=== PATIENT | male | born 1990 | race African-American/Black ===

== ENCOUNTER 2016-11-19 09:31 | Emergency (ER) ==
[2016-11-19] MEDS ORDERED: DECADRON IM ONE (10:16)
[2016-11-19] MEDS ORDERED: AMOXIL PO ONE (10:16)
[2016-11-19] MEDS ORDERED: ZYRTEC PO ONE (10:16)
--- NOTE | 2016-11-19 10:20 | PROVIDER DOCUMENTATION ---
[facility]-PENDING SALE TO [facility] General - General Source: patient - History of Present Illness-PENDING SALE TO [facility] General PENDING SALE TO [facility] Location: reports: throat, facial (sinus pressure) Quality of Pain: reports: aching Severity: reports: mild Onset/Duration: reports: 24 hours ago Timing: reports: still present, intermittent Prearrival Treatment: Initiated no prearrival treatment Associated Symptoms: reports: cough, nasal congestion/drainage, sore throat. denies: drooling, ear drainage, facial pain/swelling, fever, malaise, poor fluid intake, poor solids intake, sinus infection, tooth pain, voice change Locality of Occurance: Home Similar Symptoms Previously?: Yes Recently seen or treated by another doctor?: No - Eyes Eye Problem Symptoms: denies: eye pain - Ears Ear Problem Symptoms: reports: none - Nose Nose Problem Symptoms: other (nasal congestion) - Throat/Dental Throat/Dental Problem Symptoms: reports: sore throat <Ruthann Jung - Last Filed: 11/19/16 10:15> <Hattie Multani - Last Filed: 11/19/16 10:28> - General Chief Complaint: Cold Symptoms Stated Complaint: SORE THROAT Time Seen by Provider: 11/19/16 10:08 Allergies/Adverse Reactions: Patient Allergies Allergy/AdvReac Type Severity Reaction Status Date / Time shrimp Allergy RASH Verified 03/23/16 22:34 Home Medications: Home Medication List Medication Instructions Recorded Confirmed Last Taken Type Amoxicillin 500 mg PO BID #14 tablet 11/19/16 Unknown Rx Cetirizine [Zyrtec] 10 mg PO DAILY #20 tablet 11/19/16 Unknown Rx Methylprednisolone [Medrol Dosepak] 4 mg PO DIRECTED #1 package 11/19/16 Unknown Rx - History of Present Illness-PENDING SALE TO [facility] General Nature of Presenting Problem: Pt is 26 y/o M presents to the ED with sore throat and sinus pressure. Pt states symptoms started yesterday. Pt denies F. Pt states having cough. (Ruthann Jung) Review of Systems - Adult - REVIEW OF SYSTEMS - ADULT Constitutional: denies: chills, fever Eyes: denies: blurred vision, double vision Ears, Nose, Mouth & Throat: reports: sinus problem, throat pain. denies: ear pain, nose pain Cardiovascular: denies: chest pain, heart murmur, irregular heart rate Respiratory: reports: cough. denies: shortness of breath, wheezing Gastrointestinal: denies: abdominal pain, diarrhea, nausea, vomiting Genitourinary: denies: dysuria, hematuria Musculoskeletal: denies: bone pain, joint pain, neck pain Integumentary: denies: hives, itching Neurological: denies: dizziness/vertigo, headache/migraines Psychiatric: reports: no symptoms reported Endocrine: reports: no symptoms reported Hematologic/Lymphatic: reports: no symptoms reported Allergic/Immunologic: reports: no symptoms reported All Other Systems: Reviewed and Negative <Ruthann Jung - Last Filed: 11/19/16 10:15> Past History - Adult - PAST MEDICAL HISTORY-ADULT Review of Records: reports: Nursing Assessment Review, Medications Reviewed, Social history reviewed & non-contributory. Major Childhood Illnesses: reports: denies history Cardiovascular: reports: denies history Respiratory: reports: asthma Gastrointestinal: reports: denies history Obstetrical/Gynecological: reports: denies history Genitourinary: reports: denies history Musculoskeletal: reports: denies history Neurological: reports: denies history Endocrine/Immune: reports: denies history Other Conditions: reports: denies history - PRIOR SURGERIES/PROCEDURES Surgical/Procedure History: reports: none - PRIOR HOSPITALIZATIONS Prior Hospitalizations: reports: none - IMMUNIZATION STATUS Childhood Immunizations: See Nurse Assessment Flu Vaccine: See Nurse Assessment - FAMILY HISTORY Family History: reviewed, not pertinent - SOCIAL HISTORY Smoking: cigarettes, less than 1 pack/day Provider spent 3-5 mins advising pt. on dangers of tobacco.: discussed smoking cessation Substance Use: alcohol Alcohol Use Frequency: occasionally Number of drinks per typical drinking period:: 3-4 drinks Living Situation: family <Ruthann Jung - Last Filed: 11/19/16 10:15> Physical Exam- EENT - Physical Exam EENT Initial Vital Signs Reviewed: Yes General Appearance: appears well, alert, no apparent distress Eye Exam: bilateral eye: normal inspection, PERRL, EOMI Ear Exam: bilateral ear: auricle normal, canal normal, TM normal Nasal Exam: sinus tenderness (maxillary) Throat Exam: other (pharynx redness) Neck: non-tender, full range of motion, supple, normal inspection Respiratory: chest non-tender, lungs clear, normal breath sounds, no pleuratic chest pain, no respiratory distress, no accessory muscle use Cardiovascular: normal peripheral pulses, regular rate, rhythm, no edema, no gallop, no JVD, no murmur Abdominal Exam: normal bowel sounds, non tender, soft, no organomegaly, no pulsatile mass Lymphatic: no adenopathy Back Exam: normal inspection, no CVA tenderness, no vertebral tenderness Extremity: normal range of motion, non-tender, normal gait, normal inspection, no pedal edema, no calf tenderness, normal capillary refill Integumentary: normal color, normal turgor, warm/dry Neurologic: grossly normal Psych/Mental Status: normal mood/affect, oriented x 3 <Ruthann Jung - Last Filed: 11/19/16 10:15> Progress <Ruthann Jung - Last Filed: 11/19/16 10:15> <Hattie Multani - Last Filed: 11/19/16 10:28> - PLAN OF CARE/RESULTS Progress/Plan/Lab Results: Discussed results and plan of care with patient. Patient agrees with plan and verbalizes understanding. Vital Signs Temp Pulse Resp BP Pulse Ox 11/19/16 09:53 98 F 69 18 163/95 98 shrimp Allergy (Verified 03/23/16 22:34) RASH No Home Medications 11/19/16 Orders Category Date Time Status Amoxicillin [Amoxil] Med 11/19/16 10:16 Discontinued 500 mg PO NOW ONE Cetirizine [Zyrtec] Med 11/19/16 10:16 Discontinued 10 mg PO NOW ONE Dexamethasone [Decadron] Med 11/19/16 10:16 Discontinued 10 mg IM NOW ONE (Hattie Multani) Departure <Ruthann Jung - Last Filed: 11/19/16 10:15> - Departure Time of Disposition Order: 10:26 Certified Medical Emergency: Emergent <Hattie Multani - Last Filed: 11/19/16 10:28> - Departure DIAGNOSIS: Cough, Sore throat Sinusitis Qualifiers: Sinusitis location: maxillary Chronicity: acute Recurrence: not specified as recurrent Qualified Code(s): J01.00 - Acute maxillary sinusitis, unspecified Disposition: HOME 01 Condition: Stable Additional Instructions: Follow up with primary care physician Take medications as directed Return to ED for any concerns or worsening of symptoms ED Follow Up Instructions: You have been treated by a care provider in the Emergency Department. These instructions are being provided to you so you can have an understanding of how to care for yourself upon discharge. Upon discharge from the Emergency Department, you are responsible for making arrangements for follow-up care by a physician of your choice. Take all prescribed medications as directed. Return to the Emergency Department immediately for any new or worsening symptoms. You may call the Physician Referral phone number at [phone] to obtain a list of Physicians who are taking new patients. Prescriptions: Amoxicillin 500 mg PO BID #14 tablet Methylprednisolone [Medrol Dosepak] 4 mg PO DIRECTED #1 package Cetirizine [Zyrtec] 10 mg PO DAILY #20 tablet Referrals: None,PCP [Primary Care Provider] - Forms: Return to School/Parent Work Attestation - Scribe Verification/Attestation Scribe:: Ruthann Jung Acting as Scribe for:: Hattie Multani Scribe documention review:: This chart was documented by a scribe and accurately reflects the service the provider performed and the decisions made by the provider. <Ruthann Jung - Last Filed: 11/19/16 10:15> - Physician/ MELI Attestation Patient care was provided by Advanced Practice Provider:: Yes Advanced Practice Provider:: Hattie Multani Advanced Practice Provider documentation review:: The Mid-level provider documentation, treatment plan and medical decision making was reviewed by the physician who agrees with all treatment and medical decision making by the P. <Hattie Multani - Last Filed: 11/19/16 10:28> Physician Attestation
[2016-11-19 11:13] VITALS: BP 156/92
== END 2016-11-19 11:12 | disposition home or self-care (01) ==
LOC: P.ED 09:31
DX: J01.00 Acute maxillary sinusitis, unspecified (principal); J02.9 Acute pharyngitis, unspecified; R05 Cough; J34.89 Other specified disorders of nose and nasal sinuses; R09.81 Nasal congestion; F17.210 Nicotine dependence, cigarettes, uncomplicated; Z71.6 Tobacco abuse counseling
CPT/HCPCS: 96372

== ENCOUNTER 2016-11-25 18:50 | Emergency (ER) ==
[2016-11-25] MEDS ORDERED: PHENERGAN IM ONE (19:30)
[2016-11-25] MEDS ORDERED: BENADRYL IM ONE (19:30)
[2016-11-25] MEDS ORDERED: TORADOL IM ONE (19:30)
[2016-11-25] MEDS ORDERED: XYLOCAINE 1%/EPI 1:100,000 INJ ONE (19:32)
--- NOTE | 2016-11-25 19:37 | PROVIDER DOCUMENTATION ---
HPI-General Adult - General Chief Complaint: Headache Stated Complaint: HEADACHE Time Seen by Provider: 11/25/16 19:02 Source: patient Allergies/Adverse Reactions: Patient Allergies Allergy/AdvReac Type Severity Reaction Status Date / Time shrimp Allergy RASH Verified 11/25/16 18:55 Home Medications: Home Medication List Medication Instructions Recorded Confirmed Last Taken Type Amoxicillin/Pot Clavulanate 875 mg PO Q12HR #14 tablet 11/25/16 Unknown Rx [Augmentin] Fluticasone 50 Mcg Nasal [place] 1 spray KT DAILY #1 bottle 11/25/16 Unknown Rx [Flonase] Oxymetazoline Nasal [place] [Afrin 2 spray KT Q12HR PRN #1 bottle 11/25/16 Unknown Rx Nasal [place]] Sulfamethoxazole/Trimethoprim 1 each PO BID #14 tablet 11/25/16 Unknown Rx [Bactrim Ds Tablet] - History of Present Illness -Gen Adult Nature of Presenting Problems: 26 y/o BM c/o global CARDOZA, abscess x 1 week. Pt states was seen here a week ago, given Abx, sent home. states since then, he has not filled Rx, but noted recurring abscess to gluteal region. Reports no vision changes, N/V, hx of migraines. CARDOZA is posterior in nature. States no other sxs. Review of Systems - Adult - REVIEW OF SYSTEMS - ADULT Constitutional: reports: no symptoms reported. denies: chills, fever Eyes: reports: no symptoms reported. denies: blurred vision, double vision Ears, Nose, Mouth & Throat: reports: no symptoms reported. denies: ear pain, nose pain Cardiovascular: reports: no symptoms reported. denies: chest pain, palpitations Respiratory: reports: no symptoms reported. denies: dyspnea on exertion, shortness of breath Gastrointestinal: reports: no symptoms reported. denies: nausea, vomiting Genitourinary: reports: no symptoms reported. denies: dysuria, frequency Musculoskeletal: reports: no symptoms reported. denies: joint pain, joint swelling Integumentary: reports: see HPI, other. denies: nail changes, rash Neurological: reports: see HPI, headache/migraines. denies: numbness, paresthesia Psychiatric: reports: no symptoms reported Endocrine: reports: no symptoms reported. denies: cold intolerance, heat intolerance Hematologic/Lymphatic: reports: no symptoms reported. denies: easy bruising, prolonged bleeding Allergic/Immunologic: reports: no symptoms reported All Other Systems: Reviewed and Negative Past History - Adult - PAST MEDICAL HISTORY-ADULT Review of Records: reports: Nursing Assessment Review, Medications Reviewed Major Childhood Illnesses: reports: denies history Cardiovascular: reports: denies history Respiratory: reports: asthma Gastrointestinal: reports: denies history Obstetrical/Gynecological: reports: denies history Genitourinary: reports: denies history Musculoskeletal: reports: denies history Neurological: reports: denies history Endocrine/Immune: reports: denies history Other Conditions: reports: denies history - PRIOR SURGERIES/PROCEDURES Surgical/Procedure History: reports: none - PRIOR HOSPITALIZATIONS Prior Hospitalizations: reports: none - IMMUNIZATION STATUS Childhood Immunizations: See Nurse Assessment Flu Vaccine: See Nurse Assessment - FAMILY HISTORY Family History: reviewed, not pertinent - SOCIAL HISTORY Smoking: less than 1 pack/day Provider spent 3-5 mins advising pt. on dangers of tobacco.: Discussed manners to quit use, and f/u contacts for add'l counseling. Physical Exam-General - PHYSICAL EXAM-ADULT Initial Vital Signs Reviewed: Yes - CONSTITUTIONAL General Appearance: alert, mild distress - EYES Eyes: PERRL/EOMI, pink conjunctivae. negative: EOM palsy, meningismus - HEAD, EARS, NOSE, MOUTH & THROAT HENMT: normocephalic/atraumatic, moist mucous membranes. negative: hearing deficit - NECK Neck: full range of motion, supple, normal inspection. negative: Brudzinski's sign - RESPIRATORY Respiratory: lungs clear, normal breath sounds. negative: crackles, rales, rhonchi, stridor, wheezing - CARDIOVASCULAR Cardiovascular: regular rate, rhythm. negative: bradycardia, tachycardia - GENITOURINARY Rectal Exam: other (induration to R superior gluteus near gluteal cleft) - MUSCULOSKELETAL Back Exam: normal inspection Extremity: normal gait - SKIN Integumentary: normal color, normal turgor, warm/dry, other (as noted above) - NEUROLOGIC Neurologic: sharepoint application architect II-XII nml as tested. negative: aphasia - PSYCHIATRIC Psych/Mental Status: normal mood/affect, normal thought content, normal thought process, oriented x 3 Progress - PLAN OF CARE/RESULTS Progress/Plan/Lab Results: Orders Category Date Time Status I&D [I and D Set up] DIRECTED Care 11/25/16 19:32 Active HEAD W/O CONTRAST [CT] Stat Exams 11/25/16 19:30 Completed PARANASAL SINUSES [CT] Stat Exams 11/25/16 19:30 Completed Amoxicillin [Amoxil] Med 11/25/16 20:47 Discontinued 750 mg PO NOW ONE Clindamycin [Cleocin] Med 11/25/16 20:47 Discontinued 300 mg PO NOW ONE Diphenhydramine [Benadryl] Med 11/25/16 19:30 Discontinued 25 mg IM NOW ONE Ketorolac [Toradol] Med 11/25/16 19:30 Discontinued 60 mg IM NOW ONE Lidocaine 1%/Epi 1:100,000 [Xylocaine 1%/Epi 1:100,000] Med 11/25/16 19:32 Discontinued 20 ml INJ NOW ONE Promethazine [Phenergan] Med 11/25/16 19:30 Discontinued 25 mg IM NOW ONE Vital Signs Temp Pulse Resp BP Pulse Ox 11/25/16 21:03 98 F 81 16 144/82 97 11/25/16 18:56 98.6 F 88 18 149/75 100 shrimp Allergy (Verified 11/25/16 18:55) RASH Amoxicillin/Pot Clavulanate [Augmentin] 875 mg PO Q12HR #14 tablet 11/25/16 Fluticasone 50 Mcg Nasal [place] [Flonase] 1 spray KT DAILY #1 bottle 11/25/16 Oxymetazoline Nasal [place] [Afrin Nasal [place]] 2 spray KT Q12HR PRN #1 bottle Sulfamethoxazole/Trimethoprim [Bactrim Ds Tablet] 1 each PO BID #14 tablet 11/25 Discussed results and wound care with pt. - CT/MRI 1 CT Study: Head, Sinuses Impression: See EMR Report (NAP intracranially. Mild bilat. maxillary sinus mucosal thickening. Sinuses clear otherwise. No air-fluid levels or intrasinus /nasal cavity mass. -per Dr. Serna) Procedures - INCISION & DRAINAGE Abscess Type: Carbunkle Anesthetic: 1%, Lidocaine w/ Epinephrine Volume of Anesthetic (ml's): 7 Blade Size: 11 Packing placed?: Yes Sterile Dressing Applied?: Yes Drainage: Small Amount Procedure Comment: Pt tolerated well Departure - Departure Time of Disposition Order: 20:44 DIAGNOSIS: Abscess, Noncompliance with medication regimen Sinusitis Qualifiers: Sinusitis location: maxillary Chronicity: unspecified Qualified Code(s): J32.0 - Chronic maxillary sinusitis Headache Qualifiers: Headache type: unspecified Headache chronicity pattern: unspecified pattern Intractability: not intractable Qualified Code(s): R51 - Headache Disposition: HOME 01 Certified Medical Emergency: Emergent Condition: Stable Additional Instructions: Take medications as directed. Follow up with specialist for further management of abscess and headaches. ED Follow Up Instructions: You have been treated by a care provider in the Emergency Department. These instructions are being provided to you so you can have an understanding of how to care for yourself upon discharge. Upon discharge from the Emergency Department, you are responsible for making arrangements for follow-up care by a physician of your choice. Take all prescribed medications as directed. Return to the Emergency Department immediately for any new or worsening symptoms. You may call the Physician Referral phone number at [phone] to obtain a list of Physicians who are taking new patients. Prescriptions: Oxymetazoline Nasal [place] [Afrin Nasal [place]] 2 spray KT Q12HR PRN #1 bottle PRN Reason: Bleeding Amoxicillin/Pot Clavulanate [Augmentin] 875 mg PO Q12HR #14 tablet Sulfamethoxazole/Trimethoprim [Bactrim Ds Tablet] 1 each PO BID #14 tablet Fluticasone 50 Mcg Nasal [place] [Flonase] 1 spray KT DAILY #1 bottle Referrals: None,PCP [Primary Care Provider] - Robert Sequeira III, MD [STAFF PHYSICIAN] - Carlito Lugo MD [STAFF PHYSICIAN] - Forms: Return to School/Parent Work Instructions: Abscess, Migraine Headache, [id number] Attestation - Physician/ MELI Attestation Patient care was provided by Advanced Practice Provider:: Yes Advanced Practice Provider:: Brittani Riggs Advanced Practice Provider documentation review:: The Mid-level provider documentation, treatment plan and medical decision making was reviewed by the physician who agrees with all treatment and medical decision making by the P.
[2016-11-25] MEDS ORDERED: CLEOCIN PO ONE (20:47)
[2016-11-25] MEDS ORDERED: AMOXIL PO ONE (20:47)
[2016-11-25 21:04] VITALS: BP 144/82
--- NOTE | 2016-11-26 09:24 | Diag Imaging Result Document ---
PROCEDURE NAME: HEAD W/O CONTRAST - 11/25/2016 CT OF THE HEAD WITHOUT CONTRAST: FINDINGS: There is no evidence of intracranial bleed, mass effect, or abnormal extra-axial fluid collection. The paranasal sinuses are clear. IMPRESSION: No evidence of acute disease.
--- NOTE | 2016-11-26 09:25 | Diag Imaging Result Document ---
PROCEDURE NAME: PARANASAL SINUSES - 11/25/2016 CT OF THE PARANASAL SINUSES: FINDINGS: There is mucosal thickening in the left maxillary sinus and to a lesser extent in the right. No air fluid levels are present. The ethmoid and sphenoid sinuses are clear. The mastoids and middle ear cavities are well pneumatized. The frontal sinuses are clear. Mucosal thickening in the infundibulum on the left. IMPRESSION: Chronic maxillary sinusitis more so on the left than the right.
== END 2016-11-25 21:12 | disposition home or self-care (01) ==
LOC: P.ED 18:50
DX: L02.31 Cutaneous abscess of buttock (principal); J32.0 Chronic maxillary sinusitis; R51 Headache; F17.210 Nicotine dependence, cigarettes, uncomplicated; Z91.14 Patient's other noncompliance with medication regimen; Z71.6 Tobacco abuse counseling
CPT/HCPCS: 70450; 70486; 96372; J1200; J1885; J2550